=== PATIENT | male | born 1970 | race Hispanic/Latino ===

== ENCOUNTER 2021-11-07 10:02 | Emergency (ER) | payer MEDICAID, OTHER ==
[~2021-11-07] VITALS: Ht 180.3 cm; Wt 196.0 kg
[2021-11-07 10:57] VITALS: BP 121/58
== END 2021-11-07 11:06 | disposition home or self-care (01) ==
LOC: EDH 10:02
DX: L03.113 Cellulitis of right upper limb (principal); E78.00 Pure hypercholesterolemia, unspecified; I10 Essential (primary) hypertension; Z90.49 Acquired absence of other specified parts of digestive tract